=== PATIENT | male | born 1985 | race Caucasian/White ===

== ENCOUNTER 2017-10-29 11:07 | Emergency (ER) | payer OTHER ==
[~2017-10-29] VITALS: Ht 177.8 cm; Wt 100.0 kg
[2017-10-29 11:12] VITALS: BP 149/87; TEMP 97.7; O2SAT 100
--- NOTE | 2017-10-29 11:30 | PD ---
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 He states that yesterday he was removing a cardiac catheter from a patient after procedure and fluid splashed on him that he believes his blood. Patient states he was wearing goggles and a mask but he still believes that a small amount of fluid may have gotten his eyes. He states that his patient is a low risk patient, he is here at the insistence of his staff to be checked out. He denies any blurred vision difficulty with vision discharge from his eyes irritated eyes itchy eyes. PFSH Past Medical History Medical History: Denies Significant Hx Past Surgical History Tonsillectomy: Yes Social History Alcohol Use: Yes (SOCIAL) Tobacco Use: No Substance Use: No Review of Systems Except as stated in HPI: all other systems reviewed are Neg Physical Exam Narrative GENERAL: Well-nourished, well-developed patient. SKIN: Focused skin assessment warm/dry. HEAD: Normocephalic. EYES: No scleral icterus. No injection or drainage. Extraocular Movements intact. Vision reported as normal. NECK: Supple, trachea midline. No JVD or lymphadenopathy. CARDIOVASCULAR: Regular rate and rhythm without murmurs, gallops, or rubs. RESPIRATORY: Breath sounds equal bilaterally. No accessory muscle use. GASTROINTESTINAL: Abdomen soft, non-tender, nondistended. MUSCULOSKELETAL: No cyanosis, or edema. BACK: Nontender without obvious deformity. No CVA tenderness. Data Data Last Documented VS Vital Signs Date Time Temp Pulse Resp B/P (MAP) Pulse Ox O2 Delivery O2 Flow Rate FiO2 10/29/17 11:12 97.7 72 20 149/87 (107) 100 Orders Orders Ed Discharge Order (10/29/17 11:30) [facility] Medical Decision Making Medical Screen Exam Complete: Yes Emergency Medical Condition: Yes Differential Diagnosis Body fluid exposure, HIV exposure, hepatitis exposure peer Narrative Course Discussed with the patient the protocol driven by [employer] [facility]. This patient as well as a source patient are being tested. 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 Discussed follow-up with employee med. Diagnosis Primary Impression: Employee exposure to body fluids Additional Instructions: Follow-up with employee med. Disposition: 01 DISCHARGE HOME Condition: Audie Groev MD Oct 29, 2017 11:30
== END 2017-10-29 12:54 | disposition home or self-care (01) ==
LOC: NEPD 11:07
DX: Z77.21 Contact with and (suspected) exposure to potentially hazardous body fluids (principal); X58.XXXA Exposure to other specified factors, initial encounter; Y93.F9 Activity, other caregiving; Y92.234 Operating room of hospital as the place of occurrence of the external cause; Y99.0 Civilian activity done for income or pay
CPT/HCPCS: 99281